=== PATIENT | female | born 1960 | race Caucasian/White ===

== ENCOUNTER 2018-09-11 07:20 | Day surgery (SDC) | payer OTHER, SELFPAY ==
[~2018-09-11 07:20] MED LIST: ASPI81CH PO; DILT60ER PO; ERGO400 PO; ESOM20 PO; FISH1000 PO; LEVE500 PO; MAGOXI400 PO; METO5A PO; MULVIT PO; NITR.4SL SL; PRAV20 PO; PRIMPRO; RANI150 PO; UBID10 PO
[2018-09-28] MEDS ORDERED: LEVE500 PO (16:38)
[2018-09-28] MEDS ORDERED: LOSA50 PO (16:39)
[2018-09-28] MEDS ORDERED: METO25 PO (16:39)
[2018-09-28] MEDS ORDERED: ALPRAZOLAM0.25 MG PO (16:40)
[2018-09-28] MEDS ORDERED: OMEP20ER PO (16:40)
== END 2018-09-11 22:50 | disposition home or self-care (01) ==
LOC: MOI US 07:20
PROC: 0HBT3ZX Excision of Right Breast, Percutaneous Approach, Diagnostic (ICD-10-PCS; principal; 2018-09-11)
PROC: 07B53ZX Excision of Right Axillary Lymphatic, Percutaneous Approach, Diagnostic (ICD-10-PCS; principal; 2018-09-11)
DX: C50.811 Malignant neoplasm of overlapping sites of right female breast (principal); C77.3 Secondary and unspecified malignant neoplasm of axilla and upper limb lymph nodes; F17.210 Nicotine dependence, cigarettes, uncomplicated; Z17.1 Estrogen receptor negative status [ER-]
CPT/HCPCS: 19083; 19084; 38505; 76942; 77065; 88305; 88342; 88360; A4648; G0279

== ENCOUNTER 2018-10-01 18:15 | Emergency (ER) | payer OTHER ==
[~2018-10-01] VITALS: Ht 157.5 cm; Wt 70.3 kg
[~2018-10-01 18:15] MED LIST changes: +ALPRAZOLAM0.25 MG PO; +LOSA50 PO; +METO25 PO; +OMEP20ER PO
[2018-10-01 19:02] LABS: BASOPHILS ABSOLUTE AUTO 0.05 K/mm3 (0.00-0.23); BASOPHILS PERCENT AUTO 1 % (0-2); EOSINOPHILS ABSOLUTE AUTO 0.08 K/mm3 (0.00-0.68); EOSINOPHILS PERCENT AUTO 1 % (0-6); Hematocrit 39.9 % (33.0-51.0); Hemoglobin 13.5 g/dL (11.5-16.0); IMMATURE GRAN ABSOLUTE AUTO 0.03 K/mm3 (0.00-0.10); IMMATURE GRAN PERCENT AUTO 0 % (0-1); LYMPHOCYTES ABSOLUTE AUTO 1.57 K/mm3 (0.84-5.20); LYMPHOCYTES PERCENT AUTO 20 % (21-46); MONOCYTES PERCENT AUTO 5 % (4-13); Mean Corpuscular HGB 34.2 pg (26.0-34.0); Mean Corpuscular HGB Conc 33.8 g/dL (31.5-36.5); Mean Corpuscular Volume 101 fL (80-100); Mean Platelet Volume 9.8 fL (9.1-12.4); NEUTROPHILS ABSOLUTE AUTO 5.72 K/mm3 (1.96-9.15); NEUTROPHILS PERCENT AUTO 73 % (41-73); Platelet Count 311 K/mm3 (150-400); RDW Standard Deviation 48.8 fL (35.1-46.3); Red Blood Cell Count 3.95 M/mm3 (3.80-5.20); White Blood Cell Count 7.85 K/mm3 (4.00-11.30)
[2018-10-01 19:21] LABS: Alanine Aminotransfer (ALT/SGP 23 U/L (12-78); Albumin, Blood 3.7 g/dL (3.4-5.0); Albumin/Globulin Ratio 0.9 (0.8-1.8); Alk Phos 77 U/L (50-136); Anion Gap 5 mmol/L (6-16); Aspartate Aminotrans (AST/SGOT 29 U/L (12-37); Bilirubin, Total 0.4 mg/dL (0.1-1.0); Blood Urea Nitrogen 9 mg/dL (8-24); Bun/Creatinine Ratio 15.6 (12.0-20.0); CO2, Blood 27 mmol/L (21-32); Calcium, Blood 9.7 mg/dL (8.5-10.1); Chloride, Blood 105 mmol/L (98-108); Creatinine, Blood 0.58 mg/dL (0.40-1.00); Globulin, Blood 3.9 g/dL (2.2-4.0); Glomerular Filtration Rate >60 (60-); Glucose, Blood 188 mg/dL (70-99); Potassium, Blood 4.4 mmol/L (3.5-5.5); Sodium, Blood 137 mmol/L (136-145); Total Protein, Blood 7.6 g/dL (6.4-8.2)
== END 2018-10-01 22:47 | disposition home or self-care (01) ==
LOC: ER 18:15
PROVIDERS: Physician Assistant
DX: F41.9 Anxiety disorder, unspecified (principal); R06.00 Dyspnea, unspecified; R42 Dizziness and giddiness; R51 Headache; R07.9 Chest pain, unspecified; I25.10 Atherosclerotic heart disease of native coronary artery without angina pectoris; F17.200 Nicotine dependence, unspecified, uncomplicated; Z88.5 Allergy status to narcotic agent; Z88.8 Allergy status to other drugs, medicaments and biological substances; Z79.899 Other long term (current) drug therapy; Z79.82 Long term (current) use of aspirin
CPT/HCPCS: 36415; 71046; 80053; 85025; 93005; 93010; 99284-25

== ENCOUNTER 2018-10-03 08:07 | Day surgery (SDC) | payer OTHER ==
[~2018-10-03] VITALS: Ht 157 cm; Wt 71.1 kg
[2018-10-03] MEDS ORDERED: ESOM20 PO (09:03)
--- NOTE | 2018-10-03 09:28 | NUR ---
Ambulatory in Day Surgery History, Chart, Medications and Allergies reviewed before start of procedure.Patient confirms NPO status and agrees with scheduled surgery. Patient reports completing Chlorhexadine shower X2 prior to admission to hospital.Surgical site prepped with 2% Chlorhexidine cloth wipe.
== END 2018-10-03 23:19 | disposition home or self-care (01) ==
LOC: ORSCMMR 08:07 → ORD 09:30 → ORSCMMR 09:30
PROVIDERS: Surgery
PROC: 05H533Z Insertion of Infusion Device into Right Subclavian Vein, Percutaneous Approach (ICD-10-PCS; principal; 2018-10-03 09:30)
PROC: B5161ZA Fluoroscopy of Right Subclavian Vein using Low Osmolar Contrast, Guidance (ICD-10-PCS; principal; 2018-10-03 09:30)
DX: C50.811 Malignant neoplasm of overlapping sites of right female breast (principal); I10 Essential (primary) hypertension; I25.10 Atherosclerotic heart disease of native coronary artery without angina pectoris; K21.9 Gastro-esophageal reflux disease without esophagitis; F17.210 Nicotine dependence, cigarettes, uncomplicated; R56.9 Unspecified convulsions; Z79.899 Other long term (current) drug therapy; Z79.82 Long term (current) use of aspirin
CPT/HCPCS: 77001; C1788; J0690; J1642; J2250; J2704; J2765; J3010; J3490; J7120

== ENCOUNTER 2018-10-12 08:28 | Day surgery (SDC) | payer OTHER ==
--- NOTE | 2018-10-12 10:45 | NUR ---
PT TO STEP VIA [facility] FROM RADIOLOGY POST LUNG BIOPSY. PRESENTS WITH BANDAID TO LEFT CHEST. C/O CHEST TIGHNESS, INCREASED WITH MOVEMENT OR COUGH. PT HAS HAD CHEST XRAY. PT IN NO ACUTE DISTRESS, RESP EVEN AND UNLABORED.
--- NOTE | 2018-10-12 11:20 | NUR ---
PT HAS BEEN GIVEN TYLENOL WHICH SHE REPORTS HAS HELPED DECREASE HER PAIN AND THAT SHE FEELS LIKE SHE CAN TAKE A FULL DEEP BREATH. PT PROVIDED WITH SOUP, CRACKERS AND COFFEE. AT BEDSIDE. REPORT TO TAYLA SHELL.
--- NOTE | 2018-10-12 11:25 | NUR ---
TAKING OVER CARE OF PT. RECEIVED REPORT FROM CLARENCE SHELL. PT IS SITTING UP IN BED AT THIS TIME SPEAKING WITH DR GARCIA. PT RECEIVED TYLENOL FROM CLARENCE FOR 7/10 PAIN NOW PAIN IS 4/10. PER CLARENCE PT HAS CLEAR TIGHT LUNGS. NO DIFF BREATHING. PERSON AT BEDSIDE WITH PT. 1230 PT IS SCHEDULED FOR SECOND CXR BEFORE D/C HOME.
--- NOTE | 2018-10-12 12:18 | NUR ---
PT NOW SITTING ON SIDE OF BED. IMAGING SHOULD BE COMING TO GET PT SOON FOR SECOND IMAGE. PT PAIN CONTINUES TO DECREASE. LT SIDE OF CHEST BANDAID CDI
--- NOTE | 2018-10-12 12:45 | NUR ---
PT TAKEN TO IMAGING FOR CXR.
--- NOTE | 2018-10-12 13:01 | NUR ---
DOMITILA RN TOOK MESSAGE FOR RN. STATED THAT DR GARCIA CLEARED PT CXR AND THAT SHE CAN GO HOME. Discharge instructions reviewed with patient. Patient verbalizes understanding. Copy given to patient to take home. NO QUESTIONS OR CONCERNS WITH D.C PT HAS ALL PERSONAL BELONGINGS. NO C/O. PT STABLE. Patient States Post-Procedure ride home has been arranged. PT WALKED OUT.
== END 2018-10-12 23:26 | disposition home or self-care (01) ==
LOC: CT 08:28
DX: C34.12 Malignant neoplasm of upper lobe, left bronchus or lung (principal); C50.811 Malignant neoplasm of overlapping sites of right female breast; Z17.1 Estrogen receptor negative status [ER-]; F17.200 Nicotine dependence, unspecified, uncomplicated; Z79.899 Other long term (current) drug therapy; Z88.8 Allergy status to other drugs, medicaments and biological substances; Z88.5 Allergy status to narcotic agent
CPT/HCPCS: 32405; 71045; 77012; 88305; 88341; 88342; 88360; A9270

== ENCOUNTER 2019-03-02 21:00 | Emergency (ER) | payer OTHER ==
[~2019-03-02] VITALS: Ht 157.5 cm; Wt 67.1 kg
[2019-03-02] MEDS ORDERED: METO10 PO (21:36)
[2019-03-02 22:12] LABS: Hematocrit 32.1 % (33.0-51.0); Hemoglobin 10.3 g/dL (11.5-16.0); Mean Corpuscular HGB 33.6 pg (26.0-34.0); Mean Corpuscular HGB Conc 32.1 g/dL (31.5-36.5); Mean Corpuscular Volume 105 fL (80-100); Platelet Count 127 K/mm3 (150-400); RDW Coefficient Variation 16.2 % (11.7-14.2); Red Blood Cell Count 3.07 M/mm3 (3.80-5.20); White Blood Cell Count 4.37 K/mm3 (4.00-11.30)
[2019-03-02 22:34] LABS: Troponin I <0.015 ng/mL (0.000-0.040)
[2019-03-02 22:35] LABS: Alanine Aminotransfer (ALT/SGP 22 U/L (12-78); Albumin, Blood 3.3 g/dL (3.4-5.0); Alk Phos 75 U/L (50-136); Anion Gap 8 mmol/L (6-16); Aspartate Aminotrans (AST/SGOT 27 U/L (12-37); Bilirubin, Total 0.4 mg/dL (0.1-1.0); Blood Urea Nitrogen 10 mg/dL (8-24); Bun/Creatinine Ratio 18.8 (12.0-20.0); CO2, Blood 27 mmol/L (21-32); Calcium, Blood 9.1 mg/dL (8.5-10.1); Chloride, Blood 105 mmol/L (98-108); Creatinine, Blood 0.53 mg/dL (0.40-1.00); Globulin, Blood 3.4 g/dL (2.2-4.0); Glomerular Filtration Rate >60 (60-); Glucose, Blood 98 mg/dL (70-99); Potassium, Blood 3.7 mmol/L (3.5-5.5); Sodium, Blood 140 mmol/L (136-145); Total Protein, Blood 6.7 g/dL (6.4-8.2)
[2019-03-02 22:37] LABS: BAND PERCENT MAN 6 % (0-8); BASOPHILS ABSOLUTE MAN 0.04 K/mm3 (0.00-0.23); BASOPHILS PERCENT MAN 1 % (0-2); EOSINOPHILS PERCENT MAN 0 % (0-6); LYMPHOCYTES ABSOLUTE MAN 0.34 K/mm3 (0.84-5.20); LYMPHOCYTES PERCENT MAN 8 % (21-46); METAMYELOCYTE ABSOLUTE MAN 0.13 K/mm3 (0.00-0.00); METAMYELOCYTE PERCENT MAN 3 % (0-0); MONOCYTES ABSOLUTE MAN 0.04 K/mm3 (0.16-1.47); MONOCYTES PERCENT MAN 1 % (4-13); SEG NEUTROPHILS PERCENT MAN 81 % (41-73); TOTAL CELLS COUNTED 100
[2019-03-21] MEDS ORDERED: LEVE500 PO (12:27)
[2019-03-21] MEDS ORDERED: ALPR.25 PO (12:28)
== END 2019-03-03 01:10 | disposition home or self-care (01) ==
LOC: ER 21:00
PROVIDERS: Emergency Medicine
DX: R55 Syncope and collapse (principal); S39.012A Strain of muscle, fascia and tendon of lower back, initial encounter; E86.0 Dehydration; W18.30XA Fall on same level, unspecified, initial encounter; K21.9 Gastro-esophageal reflux disease without esophagitis; Z85.3 Personal history of malignant neoplasm of breast; Z88.5 Allergy status to narcotic agent; Z88.8 Allergy status to other drugs, medicaments and biological substances; Z79.899 Other long term (current) drug therapy
CPT/HCPCS: 71046; 72100; 80053; 84484; 85025; 93005; 93010; 99284-25; J1642; J7120

== ENCOUNTER 2021-10-13 06:37 | Day surgery (SDC) | payer MEDICARE, OTHER ==
[~2021-10-13] VITALS: Ht 157.5 cm; Wt 66.0 kg
[~2021-10-13 06:37] MED LIST changes: +ALPR.25 PO; +ALPR.5 PO; +ASCO500 PO; +ASPIR 8181 M1 PO; +CLOP75 PO; +ERGO50000 PO; +FAMO20 PO; +LACT PO; +METO10 PO; +One-A-Day Wome1 EACH PO; +REPATHA SU140 MG/1 M SC
--- NOTE | 2021-10-13 13:00 | NUR ---
PT AND S/O VERBALIZES UNDERSTANDING WRITTEN AND VERBAL INSTRUCTIONS WELL. DENIES QUESTIONS.
--- NOTE | 2021-10-13 13:27 | NUR ---
PLAVIX 75MG PO DAILY # 30 W/ 3 REFILLS CALLED TO [facility].
--- NOTE | 2021-10-13 13:30 | NUR ---
PT AMBULATES TO RESTROOM AND BACK WITHOUT DIFF. BILATERAL FEMORAL SITES REMAINS CLEAR. NO BLEEDING OR HEMATOMA NOTED. VSS. NADN. PT IV DC'D. CATH INTACT. PRESSURE DSG APPLIED. PT DC TO HOME VIA S/O BY [facility].
== END 2021-10-13 12:30 | disposition home or self-care (01) ==
LOC: MHTC 06:37
DX: I70.213 Atherosclerosis of native arteries of extremities with intermittent claudication, bilateral legs (principal); I25.10 Atherosclerotic heart disease of native coronary artery without angina pectoris; I10 Essential (primary) hypertension; E78.5 Hyperlipidemia, unspecified; K21.9 Gastro-esophageal reflux disease without esophagitis; F17.210 Nicotine dependence, cigarettes, uncomplicated; Z95.5 Presence of coronary angioplasty implant and graft; Z88.5 Allergy status to narcotic agent; Z88.8 Allergy status to other drugs, medicaments and biological substances; Z79.82 Long term (current) use of aspirin; Z79.02 Long term (current) use of antithrombotics/antiplatelets; Z79.899 Other long term (current) drug therapy
CPT/HCPCS: 76937; 85347; 99152; 99153; C1725; C1760; C1769; C1876; C1887; C1894; J1644; J2250; J3010; J7030; J7040; Q9967